=== PATIENT | female | born 1935 | race Caucasian/White ===

== ENCOUNTER 2016-07-06 13:33 | Emergency (ER) | payer OTHER ==
[~2016-07-06 13:33] MED LIST: AMLODIPINE BESY10 M1 PO; ANTIVERT12.5 MG PO; CLONIDINE0.1 M1 PO; COL100 PO; COLACE100 MG PO; COZ50 PO; FLO4 PO; ISO10 PO; LABETALOL HCL200 MG PO; LIPI20 PO; LORAZEPAM0.5 MG PO; LOSARTAN POTAS100 M1 PO; NOR10 PO; OXYBUTYNIN CHLOR5 MG PO; OXYBUTYNIN5 M1 PO; PRILOSEC20 MG PO; TRAMADOL HCL50 MG PO; TRENTAL400 MG PO; TYL325 PO; VICKS VAPORUB TP; ZOCOR10 MG PO; ZOFRAN ODT4 MG SL
[2016-07-06 15:44] VITALS: BP 135/92
[2016-07-07] MEDS ORDERED: APAP/HYDROCODON1 T13 PO (13:34)
[2016-07-07] MEDS ORDERED: ZESTRIL40 MG PO (14:42)
[2016-07-07] MEDS ORDERED: OXYBUTYNIN CHLOR5 MG PO (14:44)
[2016-07-07] MEDS ORDERED: LABETALOL HYDR300 MG PO (14:46)
== END 2016-07-06 15:44 | disposition left against medical advice (07) ==
LOC: ED 13:33
DX: Z53.21 Procedure and treatment not carried out due to patient leaving prior to being seen by health care provider (principal)

== ENCOUNTER 2016-07-07 09:44 | Inpatient (IN) | payer OTHER ==
[~2016-07-07] VITALS: Ht 154.9 cm; Wt 47.3 kg
[2016-07-07 11:10] LABS: CALCIUM 8.9 mg/dL (8.5-10.1); CARBON DIOXIDE 30.4 mmol/L (21-32); CHLORIDE SERUM 104 mmol/L (98-107); CREATININE SERUM 1.3 mg/dL (0.6-1.0); GLUCOSE SERUM 124 mg/dL (74-106); POTASSIUM SERUM 3.8 mmol/L (3.5-5.1); SODIUM SERUM 143 mmol/L (136-145)
[2016-07-07 11:16] LABS: ALBUMIN 3.4 g/dL (3.4-5.0); ALKALINE PHOSPHATASE 109 U/L (46-116); ALT/SGPT 13 U/L (14-59); AST/SGOT 13 U/L (15-37); BILIRUBIN TOTAL 0.5 mg/dL (0.20-1.00); LIPASE 68 IU/L (73-393); TOTAL PROTEIN, SERUM 7.2 g/dL (6.4-8.2)
[2016-07-07 11:40] LABS: PLATELET COUNT 175 x10^3mcL (130-400); RED CELL DISTRIBUTION WIDTH 13.7 % (11.5-14.5)
[2016-07-07 11:42] LABS: BASOPHIL % 0 % (0-2)
[2016-07-07 11:59] LABS: microscopic required? YES; urine erythrocyte 3+ (NEGATIVE)
[2016-07-07] MEDS ORDERED: APAP/HYDROCODON1 T13 PO (13:34)
[2016-07-07 13:59] LABS: T3 TOTAL 0.83 ng/mL
[2016-07-07 14:01] LABS: CHOLESTEROL/HDL RATIO 3.4
[2016-07-07 14:03] LABS: FREE T4 1.19 ng/dL (0.76-1.46); FREE THYROXINE INDEX 2.8 ug/dL (1.4-4.5); T4(THYROXINE) 8.4 ug/dL (4.7-13.3)
[2016-07-07 14:28] VITALS: BP 173/86
[2016-07-07] MEDS ORDERED: ZESTRIL40 MG PO (14:42)
[2016-07-07] MEDS ORDERED: OXYBUTYNIN CHLOR5 MG PO (14:44)
[2016-07-07] MEDS ORDERED: LABETALOL HYDR300 MG PO (14:46)
[2016-07-07 16:42] VITALS: BP 159/83
[2016-07-07 21:37] VITALS: BP 170/81
[2016-07-08 06:23] VITALS: BP 132/60
[2016-07-08 06:24] LABS: BASOPHIL % 0.5 % (0-2); PLATELET COUNT 172 x10^3mcL (130-400); RED CELL DISTRIBUTION WIDTH 13.3 % (11.5-14.5)
[2016-07-08 06:39] LABS: CALCIUM 8.5 mg/dL (8.5-10.1); CARBON DIOXIDE 29.4 mmol/L (21-32); CHLORIDE SERUM 109 mmol/L (98-107); CREATININE SERUM 1.2 mg/dL (0.6-1.0); GLUCOSE SERUM 100 mg/dL (74-106); MAGNESIUM 2.1 mg/dL (1.8-2.4); POTASSIUM SERUM 3.5 mmol/L (3.5-5.1); SODIUM SERUM 145 mmol/L (136-145)
[2016-07-08 09:39] VITALS: BP 131/55
[2016-07-08 18:19] VITALS: BP 170/85
[2016-07-08 19:30] VITALS: BP 164/87
[2016-07-08 21:07] VITALS: BP 177/87
[2016-07-08 23:42] VITALS: BP 113/59
[2016-07-09 05:33] VITALS: BP 132/70
[2016-07-09 06:19] LABS: BASOPHIL % 0.5 % (0-2); PLATELET COUNT 178 x10^3mcL (130-400); RED CELL DISTRIBUTION WIDTH 13.8 % (11.5-14.5)
[2016-07-09 06:34] LABS: CALCIUM 8.6 mg/dL (8.5-10.1); CARBON DIOXIDE 24.2 mmol/L (21-32); CHLORIDE SERUM 109 mmol/L (98-107); CREATININE SERUM 1.1 mg/dL (0.6-1.0); GLUCOSE SERUM 118 mg/dL (74-106); PHOSPHOROUS 3.2 mg/dL (2.5-4.9); POTASSIUM SERUM 3.5 mmol/L (3.5-5.1); SODIUM SERUM 145 mmol/L (136-145)
[2016-07-09 08:55] VITALS: BP 145/91
[2016-07-09 17:15] VITALS: BP 158/77
[2016-07-09 20:59] VITALS: BP 149/67
[2016-07-09 21:55] VITALS: BP 124/67
[2016-07-10 05:50] VITALS: BP 140/62
[2016-07-10 06:56] LABS: BASOPHIL % 0.5 % (0-2); PLATELET COUNT 168 x10^3mcL (130-400); RED CELL DISTRIBUTION WIDTH 13.5 % (11.5-14.5)
[2016-07-10 07:36] LABS: CALCIUM 8.3 mg/dL (8.5-10.1); CARBON DIOXIDE 26.5 mmol/L (21-32); CHLORIDE SERUM 109 mmol/L (98-107); CREATININE SERUM 1.1 mg/dL (0.6-1.0); GLUCOSE SERUM 104 mg/dL (74-106); MAGNESIUM 2.3 mg/dL (1.8-2.4); POTASSIUM SERUM 3.7 mmol/L (3.5-5.1); SODIUM SERUM 144 mmol/L (136-145)
[2016-07-10 09:38] VITALS: BP 172/86
[2016-07-10 10:14] VITALS: Ht 154.9 cm; Wt 47.3 kg
[2016-07-10] MEDS ORDERED: FLO4 PO (12:04)
[2016-07-10] MEDS ORDERED: MECLIZINE HCL12.5 MG PO (12:05)
[2016-07-10] MEDS ORDERED: COL100 PO (12:05)
[2016-07-10] MEDS ORDERED: THERA TABS1 TAB PO (12:06)
[2016-07-10] MEDS ORDERED: LAC PO (12:06)
[2016-07-10] MEDS ORDERED: ONDANSETRON4 M3 PO (12:06)
[2016-07-10] MEDS ORDERED: LEVAQUIN750 MG PO (12:07)
[2016-07-10 12:31] VITALS: BP 129/63; BP 172/86
[2016-07-10 13:23] VITALS: BP 173/77
[2016-07-10 13:50] VITALS: BP 170/83
[2016-07-10 14:35] VITALS: BP 129/63
== END 2016-07-10 15:37 | disposition home health service (06) | DRG 689 ==
LOC: ED 09:44 → DU 12:49 → MU 12:49 → DU 14:41 → MU 07-08 06:23
PROVIDERS: Emergency Medicine; Family Medicine; ADMIT Family Medicine
DX: N39.0 Urinary tract infection, site not specified (principal); G93.41 Metabolic encephalopathy; N17.0 Acute kidney failure with tubular necrosis; Z68.1 Body mass index [BMI] 19.9 or less, adult; B96.89 Other specified bacterial agents as the cause of diseases classified elsewhere; R31.29 Other microscopic hematuria; E86.0 Dehydration; N32.81 Overactive bladder; R32 Unspecified urinary incontinence; E78.5 Hyperlipidemia, unspecified; F41.8 Other specified anxiety disorders; I16.0 Hypertensive urgency
CPT/HCPCS: 83880; 84439; 97110-GP; 97116-GP; 97530-GP; J0360; J0696; J2405; J7030; Q0092